=== PATIENT | female | born 1965 | race Caucasian/White ===

== ENCOUNTER 2020-06-17 05:19 | Emergency (ER) | payer BC ==
--- NOTE | 2020-06-17 11:41 | RAD ---
ABDOMEN 2 VIEWS: DATE: 06/17/2020. FINDINGS: Gas is present in large and small bowel with no dilation or organization of loops. A moderate amount of fecal material is seen in the colon. Numerous pelvic calcifications are most likely phleboliths. The lung bases show no effusion or gross infiltrate. IMPRESSION: Nonspecific bowel gas pattern. Possible mild constipation. POS: HOME
== END 2020-06-17 06:22 | disposition home or self-care (01) ==
LOC: BURERS 05:19
DX: K59.00 Constipation, unspecified (principal); F17.210 Nicotine dependence, cigarettes, uncomplicated
CPT/HCPCS: 74019; 99284

== ENCOUNTER 2021-06-06 14:30 | Emergency (ER) | payer BC | END 2021-06-06 15:51 | disposition home or self-care (01) | LOC: BURERS 14:30 | DX: J06.9 Acute upper respiratory infection, unspecified (principal); E78.5 Hyperlipidemia, unspecified; F17.210 Nicotine dependence, cigarettes, uncomplicated; Z86.73 Personal history of transient ischemic attack (TIA), and cerebral infarction without residual deficits; Z79.82 Long term (current) use of aspirin; Z79.899 Other long term (current) drug therapy | CPT/HCPCS: 71045 ==

== ENCOUNTER 2021-08-05 14:19 | Outpatient (CLI) | payer OTHER | END 2021-08-05 14:20 | disposition home or self-care (01) | LOC: BURRAD 14:19 | PROVIDERS: ATTEND Physician Assistant | DX: W10.8XXA Fall (on) (from) other stairs and steps, initial encounter (principal); S92.351A Displaced fracture of fifth metatarsal bone, right foot, initial encounter for closed fracture ==

== ENCOUNTER 2021-09-19 11:52 | Outpatient (CLI) | payer BC | END 2021-09-19 11:53 | disposition home or self-care (01) | LOC: BURRAD 11:52 | PROVIDERS: ATTEND Physician Assistant | DX: S92.354G Nondisplaced fracture of fifth metatarsal bone, right foot, subsequent encounter for fracture with delayed healing (principal) ==

== ENCOUNTER 2022-01-16 11:25 | Outpatient (CLI) | payer BC | END 2022-01-16 11:26 | disposition home or self-care (01) | LOC: BURRAD 11:25 | PROVIDERS: ATTEND Family Medicine | DX: M79.671 Pain in right foot (principal); S92.351D Displaced fracture of fifth metatarsal bone, right foot, subsequent encounter for fracture with routine healing ==

== ENCOUNTER 2022-09-12 12:55 | Outpatient (CLI) | payer OTHER | END 2022-09-12 12:56 | disposition home or self-care (01) | LOC: BURRAD 12:55 | PROVIDERS: ATTEND Physician Assistant | DX: R22.2 Localized swelling, mass and lump, trunk (principal) | CPT/HCPCS: 71046 ==

== ENCOUNTER 2022-09-16 11:09 | Emergency (ER) | payer BC | END 2022-09-16 12:30 | disposition left against medical advice (07) | LOC: BURERS 11:09 | DX: Z53.21 Procedure and treatment not carried out due to patient leaving prior to being seen by health care provider (principal) ==

== ENCOUNTER 2022-09-19 03:27 | Emergency (ER) | payer BC ==
[2022-09-19] MEDS ORDERED: Lidocaine Viscous Sol 2% 15 ml UD Cup ONE (03:57)
[2022-09-19] MEDS ORDERED: Mag-Al Plus 1200 MG/1200 MG/120 MG/30 ML UDCUP ONE (03:57)
[2022-09-19 03:58] LABS: #Basophils 0.2 thou/uL (0.0-0.2); #Eosinphils 0.3 thou/uL (0.0-0.7); #Lymphocytes 4.2 thou/uL (1.20-3.40); #Monocytes 0.9 thou/uL (0.11-0.59); #Neutrophils 5.2 thou/uL (1.40-6.50); %Basophils 1.8 % (0.0-1.0); %Eosinophils 3.1 % (0.0-10.0); %Lymphocytes 38.4 % (21.0-51.0); %Monocytes 8.3 % (0.0-10.0); %Neutrophils 48.4 % (42.0-75.0); Hemoglobin 15.2 g/dL (12.0-16.0); Mean Corpuscular HGB CONC 35.1 g/dL (32.0-36.0); Mean Corpuscular Hemoglobin 33.6 pg (27.0-31.0); Mean Corpuscular Volume 95.8 fl (78.0-98.0); Mean Platelet Volume 7.6 fL (7.4-10.4); Platelet Count 328 10x3/uL (130-400); RBC Distribution Width 11.5 % (11.5-14.5); Red Blood Cell (RBC) Count 4.52 mill/uL (4.20-5.40); White Blood Cell (WBC) Count 10.8 10x3/uL (4.8-10.8)
[2022-09-19 04:08] LABS: Bilirubin Negative (Negative); Blood, Urine Negative (Negative); Clarity Clear (Clear); Glucose, Urine (Dipstick) Negative (Negative); Ketone, Urine Trace mg/dL (Negative); Leukocyte Negative (Negative); Nitrite Negative (Negative); Protein, Urine (Dipstick) Negative (Neg-Trace); pH, Urine 6.5 (5.0-9.0)
[2022-09-19 04:12] LABS: ALT (SGPT) 63 U/L (8-55); AST (SGOT) 43 U/L (5-34); Albumin 4.4 g/dL (3.5-5.0); Alkaline Phosphatase 103 U/L (40-110); Anion Gap 19 mmol/L (10-20); BUN (Urea Nitrogen) 11 mg/dL (9.8-20.1); Bilirubin, Total 0.4 mg/dL (0.2-1.2); Calc. Creatinine Clearance 0 mL/min (70-130); Calcium 9.3 mg/dL (7.8-10.44); Carbon Dioxide 22 mmol/L (22-29); Chloride 106 mmol/L (98-107); Estimated GFR 75; Globulin 2.8 g/dL (2.4-3.5); Glucose 131 mg/dL (70-105); Protein, Total 7.2 g/dL (6.0-8.3); Sodium 143 mmol/L (136-145)
[2022-09-19 04:16] LABS: Acetaminophen Less than 10.0 mcg/mL (10.0-30.0); Alcohol Less than 10 mg/dL (Less than 10); Salicylate Less than 8.0 mg/dL (15.0-30.0)
[2022-09-19 04:20] LABS: Amphetamine Detected (NotDetected); Barbiturates Screen Not Detected (NotDetected); Benzodiazepine Screen Not Detected (NotDetected); Cocaine Metabolite Screen Not Detected (NotDetected); Medtox Control Line Valid? VALID (VALID); Methadone Not Detected (NotDetected); Methamphetamine Detected (NotDetected); Opiate Screen Not Detected (NotDetected); Oxycodone Screen Not Detected (NotDetected); Phencyclidine (PCP) Not Detected (NotDetected); Pregnancy Test - Urine (BHCG) Negative (Negative); Pregu Control Background? CLEAR/WHITE (CLR/WHITE); Pregu Control Bar Appear? YES (CONTROL BAR); THC/Cannabinoid Screen Detected (NotDetected); Tricyclic Screen Not Detected (NotDetected)
[2022-09-19] MEDS ORDERED: Famotidine/PF 20 mg/2ml Vial ONE (04:30)
== END 2022-09-19 04:50 | disposition home or self-care (01) ==
LOC: BURERS 03:27
DX: K21.00 Gastro-esophageal reflux disease with esophagitis, without bleeding (principal); F10.10 Alcohol abuse, uncomplicated; F15.10 Other stimulant abuse, uncomplicated; E78.00 Pure hypercholesterolemia, unspecified; F17.210 Nicotine dependence, cigarettes, uncomplicated; Z86.73 Personal history of transient ischemic attack (TIA), and cerebral infarction without residual deficits; Z79.82 Long term (current) use of aspirin; Z79.899 Other long term (current) drug therapy
CPT/HCPCS: 71045; 80053; 80306; 80307; 81003; 81025; 83880; 84484; 85025; 93005; 94760; 96374; S0028